=== PATIENT | male | born 1970 | race African-American/Black ===

== ENCOUNTER → 2016-09-29 | Outpatient (CLI) | payer MEDICAID | LOC: RAD 13:21 | PROVIDERS: ATTEND Nurse Practitioner Family | DX: L89.154 Pressure ulcer of sacral region, stage 4 (principal) | CPT/HCPCS: 72170 ==

== ENCOUNTER 2016-11-23 08:12 | Day surgery (SDC) | payer MEDICAID ==
[2016-11-16 10:27] LABS: HEMATOCRIT 35.1 % (37.9-51.0); HEMOGLOBIN 11.9 g/dL (13.5-17.0); HGB HCT DIFFERENCE 0.6; MEAN CORPUSCULAR HEMOGLOBIN 31.4 pg (27.0-33.4); MEAN CORPUSCULAR HGB CONC 33.8 g/dL (32.0-36.0); MEAN CORPUSCULAR VOLUME 93 fl (80-97); RED BLOOD COUNT 3.78 10^6/uL (4.35-5.55); WHITE BLOOD COUNT 5.8 10^3/uL (4.0-10.5)
[2016-11-16 10:53] LABS: ANION GAP 16 (5-19); BLOOD UREA NITROGEN 19 mg/dL (7-20); CALCIUM 9.5 mg/dL (8.4-10.2); CARBON DIOXIDE 20 mmol/L (22-30); CHLORIDE 108 mmol/L (98-107); CREATININE RESULT 0.94 mg/dL (0.52-1.25); GLUCOSE 94 mg/dL (75-110); POTASSIUM 4.3 mmol/L (3.6-5.0); SODIUM 143.9 mmol/L (137-145)
[~2016-11-23 08:12] MED LIST: BACITRACIN INJ 50,000 UNIT VIAL ONE; BUPIVACAINE HCL 0.25 % INJ/PF (2.5 MG/1 ML) 30 ML VIAL ONE; CEFAZOLIN 1 GM/D5W RTU 1 GM/50 ML RTUPB IV PRN; DEXMEDETOMIDINE INJ 80 MCG/20 ML VIAL IV ONE; FENTANYL CITRATE INJ/PF 250 MCG/5 ML AMPULE ONE; KETAMINE HCL INJ 500 MG/10 ML VIAL ONE; LACTATED RINGERS 1000 ML IV PRN; LIDOCAINE 0.5% INJ-PF (5 MG/ML) 50 ML SDV ONE; LIDOCAINE 0.5% INJ-PF (5 MG/ML) 50 ML SDV SUBCUT PRN; MIDAZOLAM 2 MG/2 ML INJ ONE; PROPOFOL INJ 200 MG/20 ML VIAL IV ONE; THROMBIN (BOVINE) TOPICAL 5000 UNIT VIAL ONE
[2016-11-23] MEDS ORDERED: FENTANYL CITRATE INJ/PF 100 MCG/2 ML AMPUL IV PRN ×3 (10:35)
[2016-11-23] MEDS ORDERED: PROMETHAZINE HCL INJ 25 MG/1 ML VIAL IV PRN ×2 (10:35)
[2016-11-23] MEDS ORDERED: OXYCODONE-ACETAMINOPHEN 5-325 MG TABLET PO PRN ×2 (10:35)
[2016-11-23] MEDS ORDERED: MORPHINE SULFATE 10 MG/ML INJ IV PRN (10:35)
[2016-11-23] MEDS ORDERED: DIPHENHYDRAMINE HCL 50 MG/ML VIAL IV PRN (10:35)
[2016-11-23] MEDS ORDERED: MEPERIDINE HCL/PF INJ 25 MG/1 ML DISP.SYRIN IV PRN (10:35)
--- NOTE | 2016-11-23 11:29 | PDOC DISCHARGE SUMMARY ---
Discharge Summary (SDC) - Discharge Final Diagnosis: #1 chronic sacral decubitus ulcer. #2 paraplegia. #3 anemia. Date of Surgery: 11/23/16 Discharge Date: 11/23/16 Condition: Fair Treatment or Instructions: #1 activities within moderation encouraged. #2 follow up in wound clinic on Tuesday this week.. Set up appointment #3 the wounds covered clean and dry until office visit. VAC to be in place at 75 mmHg suction. #4 hold off on school/work until evaluation in office. #5 may shower in 48 hours, keep operated area as dry as possible. Important not to lie of the back. The left or right side as needed. #6 discharge from ambulatory when ASU criteria met. #7 medications per medication reconciliation sheet. #8 Percocet by prescription.. Also may have one Percocet up to every 2 hours when necessary for pain greater than 4 out of 10 while in the ASU Discharge Activity: Activity As Tolerated Report the Following to Your Physician Immediately: Shortness of Breath, Unusual Bleeding
--- NOTE | 2016-11-23 11:33 | PDOC H&P ---
General Chief Complaint: This patient is a chronic sacral ulcer with a small area that has been resistant to healing. Skin grafting is to be done in an effort to solve this problem. - Diagnosis (1) Sacral decubitus ulcer Is this a Current Diagnosis?: Yes (2) Anemia Is this a Current Diagnosis?: Yes (3) Chronic incomplete quadriplegia Is this a Current Diagnosis?: Yes - Current Medications/Allergies Allergies/Adverse Reactions: acetaminophen [From Vicodin] Allergy (Severe, Verified 11/23/16 09:14) Anaphylaxis hydrocodone [From Vicodin] Allergy (Severe, Verified 11/23/16 09:14) Anaphylaxis Heparin Analogues [Heparin Agents] Adverse Reaction (Severe, Verified 11/23/16 09:14) Thrombocytopenia Past Medical History Cardiac Medical History: Reports: Hypertension - fluctuates Denies: Coronary Artery Disease, Myocardial Infarction Pulmonary Medical History: Denies: Asthma, Bronchitis, Chronic Obstructive Pulmonary Disease (COPD), Pneumonia Neurological Medical History: Denies: Seizures Musculoskeltal Medical History: Denies: Arthritis Hematology: Denies: Anemia Past Surgical History Past Surgical History: Reports: Orthopedic Surgery - neck surgury Family History Family History: Reviewed & Not Pertinent Parental Family History Reviewed: No Children Family History Reviewed: No Sibling(s) Family History Reviewed.: No Social History Smoking Status: Never Smoker Frequency of Alcohol Use: None Hx Recreational Drug Use: No Physical Exam Vital Signs: Temp Pulse Resp BP Pulse Ox 97.7 F 58 L 14 189/113 H 99 11/23/16 08:54 11/23/16 08:54 11/23/16 08:54 11/23/16 08:54 11/23/16 08:54 Intake & Output 11/22/16 11/23/16 11/24/16 06:59 06:59 06:59 Intake Total 350 Output Total 300 Balance 50 Weight 61.69 kg Additional comments: A well-developed well-nourished -[place] male. Thin body habitus. No acute distress. Eyes membranes is pink and moist, sclerae anicteric. Respiratory no shortness of breath. Breath sounds are normal and equal bilaterally. Cardiac: Heart sounds 1 and 2 heard, no murmurs. Upper extremities show normal range of movement and pulsatile to the radials. Normal capillary refill. Skin: There is a 6 x 1.5 cm, vertically placed, sacral decubitus ulcer. Some rolling of the edges with thick hyperkeratotic skin the ulcer itself is granulating. Psychiatric the patient is alert, oriented, judgment, memory, insight normal Impression/Plan Impression: #1 sacral decubitus ulcer, chronic stage III. #2 paraplegia. #3 anemia. Plan: The plan is to admit the patient for ambulatory placement of a skin graft. Most probably a full-thickness skin graft. The risks, benefits, expected outcome and alternatives of minute the patient and he wishes to proceed.
--- NOTE | 2016-11-23 11:40 | Operative Report ---
Operative Report DATE OF SURGERY: 11/23/16 PREOPERATIVE DIAGNOSIS: #1 chronic sacral decubitus ulcer, stage III. #2 paraplegia. #3 anemia. POSTOPERATIVE DIAGNOSIS: #1 chronic sacral decubitus ulcer, stage III. #2 paraplegia. #3 anemia. OPERATION: Full-thickness skin graft placed on sacral ulcer, from right abdomen. SURGEON: RONALDO LYNN ROLL GRINDER OPERATOR: none ANESTHESIA: LMAC TISSUE REMOVED OR ALTERED: Skin graft. COMPLICATIONS: None ESTIMATED BLOOD LOSS: 5 mL. INTRAOPERATIVE FINDINGS: Of normal healthy skin of the abdominal wall. Nice closure of the donor site. The recipient site was nicely cleaned and debrided of any superficial granulation necrosis. Also of excision of the, hyperkeratotic skin edges. PROCEDURE: PROCEDURE: The sacral area and abdomen] were prepared with [Betadine] and draped out with sterile linen. After the"universal time-out", in which it was confirmed that the patient [did receive antibiotic], the procedure commenced. The patient was appropriately anesthetized. First the skin which had been painted with Betadine, was cleaned with saline solution so that no Betadine remained. An oval incision was sketched in left mid abdomen. [Working from the right side] the skin donor was excised with a 15 blade blade scalpel. This was done in the deep dermal layer, the donor was now put aside in a saline moistened gauze. Underlying fatty tissue, at the donor site, was now excised using cautery in order to facilitate closure. The donor site was now closed after obtaining hemostasis. Closure was done in layers, the deeper layers closed with interrupted 3-0 PDS and the skin closed with a continuous subcuticular suture of 4-0 Monocryl, reinforced with Steri- Strips over benzoin Local anesthesia infiltrated in the abdominal donor site . The sacral wound was debrided of non viable tissue , excess granulation tissue using[a 15 blade scalpel] with removal of loose debris, as well. The wound was irrigated with [ sterile saline] . A saline moistened gauze was now placed on the recipient site. . The donor was now defatted using iris scissors. It was thinned out somewhat. Cleaned with saline and then placed on the recipient site. Several incisions were made in the donor using a 15 blade scalpel. The donor was now sutured in place using 4 sutures of 3-0 PDS placed in the 4 quadrants. Interval interrupted sutures of 3-0 PDS were utilized in order to anchor the graft. Once this was done satisfactorily an Sorbact gauze was placed on the graft.a VAC was now placed and this portion of the procedure concluded. VAC pressure is set at 75 is of mercury, intermittent.
[2016-11-23 14:20] VITALS: BP 99/60
[2016-11-23] MEDS ORDERED: METOCLOPRAMIDE HCL INJ/PF 10 MG/2 ML SDV ONE (15:02)
[2016-11-23] MEDS ORDERED: ONDANSETRON HCL INJ/PF 4 MG/2 ML SDV ONE (15:02)
[2016-11-23] MEDS ORDERED: LIDOCAINE 2% INJ-PF (20 MG/ML) 10 ML AMPUL ONE (15:02)
[2016-11-23] MEDS ORDERED: GLYCOPYRROLATE INJ 0.4 MG/2 ML VIAL ONE (15:02)
== END 2016-11-23 14:26 | disposition home or self-care (01) ==
LOC: OROUT 08:12
PROVIDERS: ATTEND Surgery
PROC: 0HR Skin and Breast, Replacement (ICD-10-PCS; principal; 2016-11-23 10:00)
DX: L89.153 Pressure ulcer of sacral region, stage 3 (principal); D64.9 Anemia, unspecified; G82.20 Paraplegia, unspecified; I10 Essential (primary) hypertension; Z88.8 Allergy status to other drugs, medicaments and biological substances; Z88.5 Allergy status to narcotic agent; Z87.892 Personal history of anaphylaxis
CPT/HCPCS: 36415; 82962; 85027; 80048; 71020; 15200; J2250; J3490 ×6; J0690; J3010; J2765; J2405; S0020; J2704; 300

== ENCOUNTER 2017-03-14 10:12 | Day surgery (SDC) | payer MEDICAID ==
[2017-03-10 10:42] LABS: HEMATOCRIT 35.6 % (37.9-51.0); HEMOGLOBIN 11.6 g/dL (13.5-17.0); HGB HCT DIFFERENCE -0.8; MEAN CORPUSCULAR HEMOGLOBIN 30.8 pg (27.0-33.4); MEAN CORPUSCULAR HGB CONC 32.8 g/dL (32.0-36.0); MEAN CORPUSCULAR VOLUME 94 fl (80-97); RED BLOOD COUNT 3.78 10^6/uL (4.35-5.55); RED CELL DISTRIBUTION WIDTH 12.6 % (11.5-14.0); WHITE BLOOD COUNT 8.4 10^3/uL (4.0-10.5)
[2017-03-10 11:09] LABS: BLOOD UREA NITROGEN 14 mg/dL (7-20); CALCIUM 9.4 mg/dL (8.4-10.2); CREATININE RESULT 1.01 mg/dL (0.52-1.25); GLUCOSE 94 mg/dL (75-110)
[2017-03-10 11:10] LABS: ANION GAP 10 (5-19); CARBON DIOXIDE 24 mmol/L (22-30); CHLORIDE 107 mmol/L (98-107); POTASSIUM 5.1 mmol/L (3.6-5.0); SODIUM 140.8 mmol/L (137-145)
[~2017-03-14 10:12] MED LIST changes: -DEXMEDETOMIDINE INJ 80 MCG/20 ML VIAL IV ONE; -FENTANYL CITRATE INJ/PF 250 MCG/5 ML AMPULE ONE; +GLYCOPYRROLATE INJ 0.4 MG/2 ML VIAL ONE; -KETAMINE HCL INJ 500 MG/10 ML VIAL ONE; -LIDOCAINE 0.5% INJ-PF (5 MG/ML) 50 ML SDV SUBCUT PRN; +LIDOCAINE 2% INJ-PF (20 MG/ML) 10 ML AMPUL ONE; +METOCLOPRAMIDE HCL INJ/PF 10 MG/2 ML SDV ONE; -MIDAZOLAM 2 MG/2 ML INJ ONE; +ONDANSETRON HCL INJ/PF 4 MG/2 ML SDV ONE; -PROPOFOL INJ 200 MG/20 ML VIAL IV ONE
--- NOTE | 2017-03-14 13:25 | PDOC H&P ---
General Chief Complaint: The patient has a chronic sacral decubitus ulcer. This is failed to heal in spite of advanced wound care measures and is subject to skin grafting in an effort to secure healing. - Current Medications/Allergies Home Medications: No Home Medications 03/10/17 Allergies/Adverse Reactions: acetaminophen [From Vicodin] Allergy (Severe, Verified 03/14/17 10:38) Anaphylaxis hydrocodone [From Vicodin] Allergy (Severe, Verified 03/14/17 10:38) Anaphylaxis Heparin Analogues [Heparin Agents] Adverse Reaction (Severe, Verified 03/14/17 10:38) Thrombocytopenia Past Medical History Cardiac Medical History: Reports: Hypertension - fluctuates Denies: Coronary Artery Disease, Myocardial Infarction Pulmonary Medical History: Denies: Asthma, Bronchitis, Chronic Obstructive Pulmonary Disease (COPD), Pneumonia Neurological Medical History: Denies: Seizures Musculoskeltal Medical History: Denies: Arthritis Hematology: Denies: Anemia Past Surgical History Past Surgical History: Reports: Orthopedic Surgery - neck surgury Family History Family History: Reviewed & Not Pertinent Parental Family History Reviewed: No Children Family History Reviewed: No Sibling(s) Family History Reviewed.: No Social History Smoking Status: Never Smoker Frequency of Alcohol Use: None Hx Recreational Drug Use: No Physical Exam Vital Signs: Temp Pulse Resp BP Pulse Ox 97.7 F 62 16 186/110 H 100 03/14/17 10:22 03/14/17 10:22 03/14/17 10:22 03/14/17 10:22 03/14/17 10:22 Intake & Output 03/13/17 03/14/17 03/15/17 06:59 06:59 06:59 Intake Total 0 Balance 0 Weight 61.23 kg Additional comments: Constitutional: Well-developed well-nourished -[place]ongan gentleman, thin build. No apparent acute distress. Eyes: Mucous membranes pink and moist, pupils equal and reactive to light. Conjunctiva normal. Cornea normal. ENT: Hearing grossly normal. External pinna normal to inspection. Teeth intact. Tongue normal to inspection. Cardiac: Heart sounds normal. Respiratory breath sounds are present bilaterally, normal. Normal respiratory effort. Skin: Chronic sacral decubitus ulcer about 3 x 2 .5 cm Abdomen: Soft, nontender. Liver and spleen are not palpably enlarged. Bowel sounds are normal. No hernia noted. Surgical scars absent. Psychiatric: Judgment, memory, insight seem normal. Mood is pleasant and appropriate. Extremities: Upper extremities show normal range of movement. Pulses present noted to the radial arteries. Capillary refill normal. No cyanosis noted. No muscle wasting noted. Lower extremities shows paralysis. No muscle wasting noted. Impression/Plan Impression: #1 chronic sacral decubitus ulcer. 2. Paralysis. 3. Anemia. Plan: This patient who has a chronic sacral decubitus ulcer, resistant to advanced wound healing measures is a candidate for skin grafting. A previous graft failed, with no other options the patient is agreeable to another attempt at grafting. The risks and benefits, expected outcome and alternatives are familiar to him and he wishes to proceed.
[2017-03-14] MEDS ORDERED: KETAMINE HCL INJ 500 MG/10 ML VIAL ONE (13:39)
[2017-03-14] MEDS ORDERED: MORPHINE SULFATE 10 MG/ML INJ ONE (13:40)
[2017-03-14] MEDS ORDERED: PROPOFOL INJ 200 MG/20 ML VIAL IV ONE (13:40)
[2017-03-14] MEDS ORDERED: MIDAZOLAM 2 MG/2 ML INJ ONE (13:40)
[2017-03-14] MEDS ORDERED: PROMETHAZINE HCL INJ 25 MG/1 ML VIAL IV PRN ×2 (14:46)
[2017-03-14] MEDS ORDERED: OXYCODONE-ACETAMINOPHEN 5-325 MG TABLET PO PRN ×2 (14:46)
[2017-03-14] MEDS ORDERED: MEPERIDINE HCL/PF INJ 25 MG/1 ML DISP.SYRIN IV PRN (14:46)
[2017-03-14] MEDS ORDERED: DIPHENHYDRAMINE HCL 50 MG/ML VIAL IV PRN (14:46)
[2017-03-14] MEDS ORDERED: FENTANYL CITRATE INJ/PF 100 MCG/2 ML AMPUL IV PRN ×3 (14:46)
[2017-03-14] MEDS ORDERED: MORPHINE SULFATE 10 MG/ML INJ IV PRN (14:46)
--- NOTE | 2017-03-14 15:15 | Operative Report ---
Operative Report DATE OF SURGERY: 03/14/17 PREOPERATIVE DIAGNOSIS: #1 chronic sacral decubitus ulcer. 2. Paralysis. 3. Anemia. POSTOPERATIVE DIAGNOSIS: #1 chronic sacral decubitus ulcer. Post full- thickness skin graft. 2. Paralysis. 3. Anemia. OPERATION: Full-thickness skin graft to sacral chronic ulcer from abdominal wall. SURGEON: RONALDO LYNN WEIGHT CONTROL ENGINEER: none. ANESTHESIA: LMAC TISSUE REMOVED OR ALTERED: Not applicable. COMPLICATIONS: None. ESTIMATED BLOOD LOSS: 10 mL. INTRAOPERATIVE FINDINGS: Of a 1.5 x 3 cm chronic decubitus ulcer, enlarged to 3 x 2 cm after debridement. Thick ridges of callus laterally were debrided. Satisfactory hemostasis and satisfactory graft placement accomplished. PROCEDURE: PROCEDURE: The abdomen and sacral area were prepared with [Betadine] and draped out with sterile linen. After the"universal time-out", in which it was confirmed that the patient [did receive antibiotic], the procedure commenced. The patient was appropriately anesthetized. The abdomen was now approached. Local anesthesia infiltrated in the abdominal donor site. An oval incision was sketched in the crease just below the abdominal pannus. This was centered on the midline and [measured 2x 3 cm], the incision now made through the epidermis and dermis. [Working from the right side] the skin donor was excised with a 15 blade blade scalpel. This was done in the deep dermal layer, the donor was now put aside in a saline moistened gauze. Underlying fatty tissue, at the donor site, was now excised using cautery in order to facilitate closure. The donor site was now closed after obtaining hemostasis. Closure was done in layers, the deeper layers closed with interrupted 3-0 PDS and the skin closed with a continuous subcuticular suture of 4-0 Monocryl, reinforced with Steri-Strips over benzoin . Local anesthesia was infiltrated in sacral wound site]. [The wound was debrided ] of non viable tissue , excess granulation tissue using[a 15 blade scalpel] with removal of loose debris, as well as heaped up callus. The wound was irrigated with [sterile saline] . A thrombin moistened gauze was now placed on the recipient site. The donor was now defatted using iris scissors. It was thinned out somewhat. Cleaned with saline and then placed on the recipient site. Several incisions were made in the donor using a 15 blade scalpel. The donor was now sutured in place using 4 sutures of 3-0 PDS placed in the 4 quadrants. Each was left long for subsequent tying. Interval interrupted sutures of 3-0 PDS were utilized in order to anchor the graft. Once this was done satisfactorily an Adaptic gauze was placed on the graft followed by a gauze lightly moistened with saline the 4 sutures previously left long were now tied over this so as to secure nice anchoring and pressure on the graft. 4 x 4's and Kerlix were applied and this portion of the procedure concluded. An adhesive barrier was now placed over the entire dressing to try to reduce the risk of contamination in the first few days.
--- NOTE | 2017-03-14 15:20 | PDOC DISCHARGE SUMMARY ---
Discharge Summary (SDC) - Discharge Final Diagnosis: #1 chronic sacral decubitus ulcer. 2. Paraplegia. 3. Anemia. Date of Surgery: 03/14/17 Discharge Date: 03/14/17 Condition: Fair Treatment or Instructions: Discharge home [after recovery per ASU criteria]. Diet , ],as tolerated, when fully awake advance as tolerated. Activities within moderation encouraged. Follow up in wound clinic by appointment later this week]. Call for appointment. Leave wounds [covered], [keep clean and dry, until wound clinic visit. Hold of on school/work [until evaluation in office]. Medications per medication reconciliation sheet. May shower [in 48 hrs], [try to keep operated area as dry as possible]. Prescriptions: Oxycodone HCl/Acetaminophen [Percocet 5-325 mg Tablet] 1 tab PO ASDIR PRN #10 tab PRN Reason: Discharge Diet: As Tolerated Respiratory Treatments at Home: Deep Breathing/Coughing Discharge Activity: Activity As Tolerated Report the Following to Your Physician Immediately: Shortness of Breath, Unusual Bleeding
[2017-03-14] MEDS ORDERED: DEXTROSE 5%-1/2 NORMAL SALINE 1,000 ML IV PRN (18:45)
[2017-03-15 12:24] VITALS: BP 126/86
== END 2017-03-15 13:39 | disposition home health service (06) ==
LOC: OROUT 10:12 → 4S 18:34 → OROUT 03-15 13:39
PROVIDERS: ATTEND Surgery
PROC: 0HR Skin and Breast, Replacement (ICD-10-PCS; principal; 2017-03-14 12:00)
DX: L89.159 Pressure ulcer of sacral region, unspecified stage (principal); G82.20 Paraplegia, unspecified; D64.9 Anemia, unspecified
CPT/HCPCS: 36415 ×2; 82962; 84132; 85027; 80048; 15200; J2250; J3490 ×6; J0690; J2765; J2270; J2405; S0020; J2704; 300

== ENCOUNTER 2020-08-23 07:22 | Emergency (ER) | payer MEDICARE, MEDICAID ==
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
[2020-08-23] MEDS ORDERED: ONDANSETRON HCL INJ/PF 4 MG/2 ML SDV IV ONE (08:51)
[2020-08-23] MEDS ORDERED: MORPHINE SULFATE 10 MG/ML INJ IV ONE (08:51)
[2020-08-23] MEDS ORDERED: LIDOCAINE 2% URO-JET 5 ML KIT MM ONE (09:42)
[2020-08-23 09:59] LABS: ABSOLUTE BASOPHILS # (AUTO) 0.1 10^3/uL (0.0-0.2); ABSOLUTE EOSINOPHILS # (AUTO) 0.1 10^3/uL (0.0-0.6); ABSOLUTE LYMPHOCYTES (AUTO) 1.9 10^3/uL (0.5-4.7); ABSOLUTE MONOCYTES (AUTO) 1.1 10^3/uL (0.1-1.4); ABSOLUTE NEUT (AUTO) 16.7 10^3/uL (1.7-8.2); BASOPHILS % (AUTO) 0.3 % (0-2); EOSINOPHILS % (AUTO) 0.4 % (0-6); HEMATOCRIT 34.8 % (37.9-51.0); HEMOGLOBIN 11.6 g/dL (13.5-17.0); LYMPHOCYTES % (AUTO) 9.8 % (13-45); MEAN CORPUSCULAR HEMOGLOBIN 30.5 pg (27.0-33.4); MEAN CORPUSCULAR HGB CONC 33.3 g/dL (32.0-36.0); MEAN CORPUSCULAR VOLUME 92 fl (80-97); MONOCYTES % (AUTO) 5.4 % (3-13); PLATELET COUNT 325 10^3/uL (150-450); RED CELL DISTRIBUTION WIDTH 13.8 % (11.5-14.0); SEGMENTED NEUTROPHILS % (AUTO) 84.1 % (42-78); TOTAL CELLS COUNTED % (AUTO) 100 %; WHITE BLOOD COUNT 19.8 10^3/uL (4.0-10.5)
[2020-08-23 12:40] VITALS: BP 166/104
== END 2020-08-23 12:42 | disposition short-term general hospital (02) ==
LOC: ER 07:22
DX: S37.30XA Unspecified injury of urethra, initial encounter (principal); T83.9XXA Unspecified complication of genitourinary prosthetic device, implant and graft, initial encounter; G82.50 Quadriplegia, unspecified; X58.XXXA Exposure to other specified factors, initial encounter; Z88.8 Allergy status to other drugs, medicaments and biological substances; I10 Essential (primary) hypertension; Z20.828 Contact with and (suspected) exposure to other viral communicable diseases
CPT/HCPCS: 99285; 96374; 96375; 36415; 85025; 0241U ×4; J2270; J2405; A9270; C9803; J3490